=== PATIENT | male | born 2000 | race American Indian/Alaskan Native ===

== ENCOUNTER 2021-12-03 18:07 | Emergency (ER) | payer MEDICAID ==
[2021-12-03 18:20] VITALS: BP 116/69
== END 2021-12-04 22:37 | disposition left against medical advice (07) ==
LOC: ED 18:07
DX: S01.111A Laceration without foreign body of right eyelid and periocular area, initial encounter (principal); Z53.21 Procedure and treatment not carried out due to patient leaving prior to being seen by health care provider; T14.90XA Injury, unspecified, initial encounter; X58.XXXA Exposure to other specified factors, initial encounter; Y93.89 Activity, other specified; Y92.89 Other specified places as the place of occurrence of the external cause; Y99.8 Other external cause status